=== PATIENT | male | born 1970 | race African-American/Black ===

== ENCOUNTER 2019-07-04 09:14 | Emergency (ER) | payer MEDICAID ==
[~2019-07-04] VITALS: Ht 157.5 cm; Wt 66.0 kg
[2019-07-04] MEDS: PREDNISONE 20MG TABLET PO ONE (10:21)
[2019-07-04] MEDS: IBUPROFEN 600MG TABLET PO ONE (10:21)
[2019-07-04] MEDS: ALBUTEROL (0.083%) 2.5MG/3ML NEB HHN ONE (10:30)
[2019-07-04 11:42] VITALS: BP 117/80
== END 2019-07-04 11:50 | disposition home or self-care (01) ==
LOC: ER 09:14
DX: J45.909 Unspecified asthma, uncomplicated (principal); B34.9 Viral infection, unspecified; I10 Essential (primary) hypertension; R06.2 Wheezing; Z91.018 Allergy to other foods
CPT/HCPCS: 71045; 94640; 99283; J7512; J7611; Z7610

== ENCOUNTER 2023-02-03 22:15 | Emergency (ER) | payer MEDICAID, OTHER ==
[~2023-02-03] VITALS: Ht 157.5 cm; Wt 57.0 kg
[2023-02-03 22:25] VITALS: PULSE 91
[2023-02-03 22:31] VITALS: BP 109/76; RESP 16; TEMP 97.5; O2SAT 100
[2023-02-03 23:25] LABS: BASOPHILS % 0.3 % (0.0-2.0); CHLORIDE 104 mEq/L (98-107); EOSINOPHILS % 0.5 % (0.0-5.0); HEMATOCRIT. 39.7 % (42.0-52.0); HEMOGLOBIN. 13.1 g/dL (14.0-18.0); LYMPHOCYTES % 19.6 % (20.0-50.0); MEAN CORPUSCULAR HEMOGLOBIN 27.4 pg (28.0-32.0); MONOCYTES % 5.7 % (2.0-8.0); NEUTROPHILS % 73.9 % (40.0-76.0); PLATELET 284 x1000/uL (130-400); RED BLOOD CELL COUNT 4.78 mill/uL (4.7-6.1); RED CELL DISTRIBUTION WIDTH 14.1 % (11.6-14.6)
[2023-02-03 23:29] LABS: PARTIAL THROMBOPLASTIN TIME 27.1 sec (23.4-31.0); PROTHROMBIN TIME 10.4 sec (9.6-11.0)
[2023-02-04] MEDS ORDERED: ENOXAPARIN 100MG/ML SYR SUBCUT ONE
[2023-02-04] MEDS ORDERED: ASPIRIN 81MG TABLET PO ONE
[2023-02-04] MEDS ORDERED: NITROGLYCERIN 0.4MG TABLET SL SL PRN
== END 2023-02-04 01:54 | disposition left against medical advice (07) ==
LOC: ER 22:15
DX: I21.3 ST elevation (STEMI) myocardial infarction of unspecified site (principal); Z91.018 Allergy to other foods
CPT/HCPCS: 36415; 71045; 80053; 80320; 84484; 85025; 93005; 99291; G0480